=== PATIENT | female | born 1975 | race Caucasian/White ===

== ENCOUNTER 2017-07-04 14:47 | Emergency (ER) | payer SELFPAY ==
--- NOTE | 2017-07-06 13:13 | ER ---
ADMIT: 07/04/2017 RM/LOC: ER [facility] MR#: [id number] [place], [place] [id number] VICKIE CUI [address] [place] [address] Emergency Room Report SEX: F AGE: 41 : 1975 DATE: 07/04/2017 ADDENDUM: This patient comes into the ER because she had a syncopal episode. She had a similar one a month ago when she was seen by a physician, but could not explain why it happened. She states she was standing, feeling fine. When her boyfriend saw her, he saw that she was getting dizzy and he caught her before she hit the ground. She had no injury. She is homeless and has not eaten anything today. On physical exam, she is alert and oriented. She answers questions and speaks appropriately. However, she does not know the date or the time or the month and she says that is normal for her for an anoxic brain injury in the past. She is not orthostatic. We did feed her. She ambulated without any difficulty. CBC, BMP, and urinalysis and tests were negative. DIAGNOSIS: Syncope. She was placed on a Holter monitor for 48 hours. We will have her follow up with Dr. Zavala. Please see my T-sheet. MARIA R Leyva / Paxton Sarabia MD / modl JOB #: [id number] CC: Paxton Sarabia MD, Attending Physician Po Zavala MD, Family Physician
== END 2017-07-04 18:23 | disposition home or self-care (01) ==
LOC: ER 14:47
DX: R55 Syncope and collapse (principal); F17.210 Nicotine dependence, cigarettes, uncomplicated; Z90.49 Acquired absence of other specified parts of digestive tract; Z98.890 Other specified postprocedural states